=== PATIENT | female | born 1965 | race Caucasian/White ===

== ENCOUNTER 2016-11-19 06:51 | Emergency (ER) | payer OTHER ==
[~2016-11-19] VITALS: Ht 154.9 cm; Wt 98.2 kg
[~2016-11-19 06:51] MED LIST: ASPI-973 PO; CIPR-231 PO; CLOP75TA3 PO; FAMO20TA4 PO; FLUO40CA12 PO; LIP20 PO; LOPRESSOR25 MG PO; LOSA1TAB35 PO; NIT4 SL; OXYC-407 PO
[2016-11-19 06:53] VITALS: BP 139/93; PULSE 77; RESP 22; O2SAT 98
--- NOTE | 2016-11-19 07:00 | ED.REPORT ---
HPI-Abd Pain F 40 and Over Date of Service Nov 19, 2016 ED Provider: See Valentin MD Pt is a 51 year old female with a hx of diverticulitis, HTN, GERD and CAD presenting to the ED complaining of lower abdominal cramping radiating to her back onset last week worsened last night. Denies fever, diarrhea, nausea, or vomiting. She denies any differences in these symptoms compared to similar episodes in the past. Pain is exacerbated by bowel movements and movement. She had a GI consult and colonoscopy which were both negative several months ago. Pt reports that she has episodes like this about once per year. Nursing Notes Stated Complaint: ABDOMINAL PAIN Chief Complaint: Female Abdominal Pain Nursing Notes Reviewed: Yes (Picreel, Lalalama not reconciled ) Allergies: Coded Allergies: No Known Allergies (Verified Allergy, Unknown, 11/30/15) Scheduled Aspirin (Aspirin) 81 Mg Tablet 81 MG PO DAILY Atorvastatin-Expunged Drug, Do Not Renew! (Atorvastatin-Expunged Drug, Do Not Renew!) 20 Mg Tablet 40 MG PO DAILY Ciprofloxacin (Cipro) 500 Mg Tablet 500 MG PO BID Ciprofloxacin (Ciprofloxacin) 500 Mg Tablet 500 MG PO BID Clopidogrel Bisulfate (Plavix) 75 Mg Tablet 75 MG PO DAILY FAMOTIDINE-Expunged Drug, Do Not Renew! (Pepcid-Expunged Drug, Do Not Renew!) 20 Mg Tablet 20 MG PO BID FLUoxetine-Expunged Drug, Do not Renew! (Prozac-Expunged Drug, Do not Renew!) 40 Mg Capsule 40 MG PO DAILY Lactobacillus Acidophilus (Probiotic) 1 Each Capsule 1 EACH PO DAILY Losartan/HCTZ-Expunged Drug, Do Not Renew! (Losartan/HCTZ 100/12.5-Expunged, Do Not Renew) 1 Each Tablet 1 EACH PO DAILY Metoprolol Tart-Expunged Drug, Do Not Renew! (Metoprolol Tart-Expunged Drug, Do Not Renew!) 25 Mg Tab 50 MG PO BID INCREASED DOSE Metronidazole (Metronidazole) 500 Mg Tablet 500 MG PO TID Scheduled PRN Nitroglycerin-Expunged Drug, Do Not Renew! (Nitroglycerin SL-Expunged Drug, Do Not Renew!) 0.4 Mg Subl 0.4 MG SL PRN Ondansetron ODT (Ondansetron ODT) 8 Mg Tab.rapdis 8 MG PO Q4H PRN PRN For Nausea Oxycodone HCl/Acetaminophen 5-325 (Endocet 5-325) 1 Each Tablet 1-2 TABLET PO Q4H PRN PRN For Pain oxyCODONE-Acetaminophen 5-325 mg (oxyCODONE-Acetaminophen 5-325 mg) 1 Each Tablet 1-2 TAB PO Q6H PRN PRN For Pain General Time Seen by MD: 06:57 Chief Complaint Abdominal pain Hx Obtained From: Patient Arrived By: Walk-in Sudden in Onset?: No Onset Occurred: 1 week ago Symptom Duration: Since onset Progression since Onset: Gradually worsening Location: : LLQ: RLQ Quality: Cramping, Painful Radiation: : Back Severity: Current: Severe Severity: Maximum: Severe Associated with: Reports: Back pain, Denies: Diarrhea, Fever, Nausea, Vomiting Recent Healthcare: No recent doctor visit, No recent hospitalization Similar Sx Previous: Yes Risk Factors CAD Risk Stratification Hypertension Known CAD Risk factors reviewed, Risk factors N/A Past Medical History Past Medical History 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 Not currently on Warfarin. h/o diverticulitis Reports: Coronary artery disease, GERD, Hypertension Reports: Diverticulitis Past Surgical History 4 cardiac stents Laparoscopy Nerve repair to hand Colonoscopy w/polpyectomy Smoking History Never Smoker Social History Alcohol Use: 1-3 per day Drug Use: Denies drug use Occupation Nurse Ambulatory Status Independent Review of Systems Constitutional: Denies: Fever GI: Reports: Abdominal pain, Denies: Diarrhea, Nausea, Vomiting Musculoskeletal: Reports: Back pain Complete sys rev & neg: except as marked. Physical Exam Vital Signs Vital Signs (First) Date Time Temp Pulse Resp B/P Pulse Ox O2 Delivery O2 Flow Rate FiO2 11/19/16 06:53 37.0 77 22 139/93 98 11/19/16 08:31 Room Air Initial VS: Reviewed, Vital signs normal Head / Eyes: Atraumatic, Normocephalic, PERRL ENT: Mucous membranes moist, Conjunctiva normal, No scleral icterus Extremities: Vascular intact, Neuro intact, No swelling, No tenderness Skin: Warm, Dry, No cyanosis Neurologic: Alert, Oriented, Nonfocal Psychiatric: Mood/affect normal, Behavior normal, Normal thought content General/Constitutional: Awake, Alert, Well appearing Appears uncomfortable Respiratory / Chest: Breath sounds NL, Breath sounds = bilat, No respiratory distress, No rales, No rhonchi, No wheezing, No stridor Cardiovascular: Heart rate NL, Regular rhythm, Heart sounds NL, Peripheral circulation NL Abdomen: Atraumatic, Soft, No guarding, No rebound Tenderness/Guarding/Rebound: Positive: Tender LLQ... (Moderate) Interpretation & Diagnostics Lab Results Interpretation Result Diagram: 11/19/16 0714 11/19/16 0714 Test 11/19/16 07:14 White Blood Count 15.6th/mm3 (3.8-10.1) Red Blood Count 4.37mil/mm3 (3.90-5.20) Hemoglobin 13.7g/dL (12.0-15.6) Hematocrit 41.4% (35.0-46.0) Mean Corpuscular Volume 94.7fL (81-100) Mean Corpuscular Hemoglobin 31.4pg (27.0-35.0) Mean Corpuscular Hemoglobin Concent 33.1% (32.0-37.0) Red Cell Distribution Width 12.7% (12.3-15.4) Platelet Count 215bil/L (150-400) Neutrophils (%) (Auto) 77.4% (40-74) Lymphocytes (%) (Auto) 11.5% (14-46) Monocytes (%) (Auto) 8.0% (4-12) Eosinophils (%) (Auto) 2.6% (0-5) Basophils (%) (Auto) 0.3% (0-3) Sodium Level 136mEq/L (134-144) Potassium Level 4.2mEq/L (3.5-5.2) Chloride Level 101mEq/L (97-108) Carbon Dioxide Level 22mmol/L (18-29) Blood Urea Nitrogen 21mg/dL (6-24) Creatinine 0.88mg/dL (0.57-1.00) Estimat Glomerular Filtration Rate 97mL/min (>59) Glucose Level 146mg/dL (60-99) Calcium Level 9.7mg/dL (8.5-10.1) Total Bilirubin 0.5mg/dL (0.0-1.2) Aspartate Amino Transf (AST/SGOT) 14U/L (0-50) Alanine Aminotransferase (ALT/SGPT) 18U/L (0-32) Alkaline Phosphatase 73U/L (25-150) Total Protein 7.7g/dL (6.4-8.4) Albumin 4.1g/dL (3.4-5.0) Lab Results Interpretation: CBC positive leukocytosis CMP normal Re-Eval/Medical Decision Med Decision/Clinical Course This is a 51-year-old female who presents with left lower quadrant pain and cramping that is similar to what she has had with previous episode of diverticulitis over a year ago. Her chills, trace nausea. She has had a little bit of discomfort in the past few days and wanted was sure if it meant something, but it got significantly worse last night-that is what brought her into the emergency department today. Exam she appears mildly comfortable, but not in extremis. She does have mild tenderness left lower quadrant without guarding or rebound. Vitals are otherwise normal. I reviewed options, and the patient to like to pursue an empiric treatment for diverticulitis-I think this is entirely reasonable. She received a loading dose of Flagyl IV and a by mouth dose of Levaquin in the department. Labs did reveal a mild leukocytosis. But I am not finding indicate necessity of emergent imaging at this time. I think it initially appeared that treatment with follow-up is appropriate. Patient agrees. Patient's being discharged from course of Cipro and Flagyl which worked best for her previously. Patient's receiving some oxycodone and when necessary ondansetron. Routine and return precautions reviewed. Source of Hx: Old records Re-Evaluation/Progress : Time of Eval: 08:02 Patient Status: Condition improved Re-Evaluation/Progress Note: Discussed lab results and plan for discharge. Pt understands and agrees with plan. Differential Diagnosis: Positive: Diverticular disease, Negative: Abdominal aortic aneurysm, Acute abdominal pain, Ectopic , Esophageal rupture, Gun shot wound abdomen, Myocardial infarction, Peritonitis , Stab wound abdomen Counseled Regarding: Diagnosis, Lab results, Need for follow-up, When/why to return to ED Discharge & Departure Primary Impression: Diverticulitis Diverticulitis site: unspecified part of intestinal tract Diverticulitis bleeding: without bleeding Diverticulitis complication: without perforation or abscess Qualified Code: K57.92 - Diverticulitis of intestine, part unspecified, without perforation or abscess without bleeding Disposition: Home Discharge Condition All VS Reviewed: Yes Condition: Improved Additional Instructions: 1. Your symptoms and exam do suggest another episode of diverticulitis. 2. Your wbc count was elevated at 15. 3. As discussed it is reasonable to treat empirically (without imaging) at this time. 4. Take the antibiotic ciprofloxacin 500mg twice a day for 10 days. 5. And take the antibiotic metronidazole 500mg three times a day for 10 days. 6. If needed for pain take oxycodone/APAP 5/325 1-2 tabs up to every 4-6 hours. NOTE: This medication contains a narcotic and causes drowsiness. No driving for at least 4 hours after taking. 7. Take ondansetron up to every 4 hours IF needed for nausea. 8. Symptoms are expected to be clearly improving (but not resolved) within 2 days of starting antibiotics. Turn to the emergency department if not improving , if new or worsening symptoms occur, or pain not controlled. 9. I recommend a clear diet for the next 1-2 days, but then slowly advance diet as tolerated. Referrals: Maikel Howell DO (PCP) Scribe Attestation Portions of this note were transcribed by Yakelin Rcih. I, Dr. Valentin personally performed the history, physical exam and medical decision-making; I reviewed and confirmed the accuracy of the information in the transcribed note. Signed by: Zuleyma Carlin, 11/19/16 at 0830. copies to: Maikel Howell Matthew F MD Nov 19, 2016 07:00 YAKELIN RICH Nov 19, 2016 07:08
[2016-11-19] MEDS ORDERED: Ondansetron 2 mg/mL 2 mL Inj IVPUSH ONE (07:10)
[2016-11-19] MEDS ORDERED: levoFLOXacin 750 mg Tablet PO ONE (07:10)
[2016-11-19] MEDS ORDERED: metroNIDAZOLE Inj 1,000 MG in IV Premix 1 EACH IV ONE (07:10)
[2016-11-19] MEDS ORDERED: 0.9% Sodium Chloride 1,000 ML IV ONE (07:10)
[2016-11-19] MEDS ORDERED: CIPR-198 PO (07:13)
[2016-11-19] MEDS ORDERED: OXYC1TAB24 PO (07:13)
[2016-11-19] MEDS ORDERED: METR500T19 PO (07:13)
[2016-11-19] MEDS ORDERED: ONDA8TAB10 PO (07:13)
[2016-11-19] MEDS: HYDROmorphone 0.5 mg/0.5 mL iSecure Syringe IVPUSH PRN ×2 (07:24→08:02)
[2016-11-19 07:32] LABS: BASOPHILS % (AUTO) 0.3 % (0-3); EOSINOPHILS % (AUTO) 2.6 % (0-5); Mean Corpuscular Hemoglobin 31.4 pg (27.0-35.0); Mean Corpuscular Volume 94.7 fL (81-100); NEUTROPHILS % (AUTO) 77.4 % (40-74); Platelet Count 215 bil/L (150-400)
[2016-11-19] MEDS ORDERED: LACT1CAP65 PO (08:14)
[2016-11-19 08:31] VITALS: BP 112/64; PULSE 67; RESP 16; O2SAT 96
== END 2016-11-19 08:30 | disposition home or self-care (01) ==
LOC: SED 06:51
DX: K57.92 Diverticulitis of intestine, part unspecified, without perforation or abscess without bleeding (principal); K21.9 Gastro-esophageal reflux disease without esophagitis; I10 Essential (primary) hypertension; I25.10 Atherosclerotic heart disease of native coronary artery without angina pectoris; Z79.82 Long term (current) use of aspirin; Z79.899 Other long term (current) drug therapy
CPT/HCPCS: 80053; 85025; 96365; 96375; 96376; 99285; J1170; J2405; J3490; J7030